=== PATIENT | female | born 2000 | race Caucasian/White ===

== ENCOUNTER 2018-11-15 19:50 | Emergency (ER) | payer MEDICAID ==
[~2018-11-15] VITALS: Ht 170.2 cm; Wt 95.7 kg
[2018-11-15 20:03] VITALS: Ht 170.2 cm; Wt 95.7 kg
[2018-11-15 22:12] LABS: BASOPHIL % 0.4 % (0-2); PLATELET COUNT 167 x10^3mcL (130-400); RED CELL DISTRIBUTION WIDTH 13.6 % (11.5-14.5)
[2018-11-15 22:35] LABS: ALKALINE PHOSPHATASE 118 U/L (46-116); ALT/SGPT 34 U/L (14-59); AST/SGOT 25 U/L (15-37); BILIRUBIN TOTAL 0.9 mg/dL (0.20-1.00); CALCIUM 9.3 mg/dL (8.5-10.1); CARBON DIOXIDE 22.4 mmol/L (21-32); CHLORIDE SERUM 98 mmol/L (98-107); CREATININE SERUM 0.7 mg/dL (0.6-1.0); FREE T4 1.14 ng/dL (0.76-1.46); GFR1 > 60 mL/min; GLUCOSE SERUM 101 mg/dL (74-106); SODIUM SERUM 133 mmol/L (136-145); TOTAL PROTEIN, SERUM 7.9 g/dL (6.4-8.2)
[2018-11-15 23:19] LABS: POTASSIUM SERUM 2.8 mmol/L (3.5-5.1)
[2018-11-16 04:00] LABS: microscopic required? YES; urine erythrocyte TRACE (NEGATIVE)
[2018-11-16 04:13] VITALS: BP 98/54
== END 2018-11-16 04:00 | disposition home or self-care (01) ==
LOC: ED 19:50
PROVIDERS: Emergency Medicine
DX: O26.891 Other specified pregnancy related conditions, first trimester (principal); E87.6 Hypokalemia; Z3A.12 12 weeks gestation of pregnancy
CPT/HCPCS: 84439; J2001; J2765; J3475; J3480; J7030